=== PATIENT | female | born 2000 ===

== ENCOUNTER 2021-05-11 15:59 | Inpatient (IN) | payer MEDICAID ==
--- NOTE | 2021-05-11 18:04 | History and Physical Report ---
History of Present Illness Date of examination: 05/11/21 Date of admission: 05/11/21 15:59 Chief complaint: labor History of present illness: The patient is a 20-year-old single female primigravida EDC 05/07/2021 now at 40+ weeks she did have GBS positive she will need to be treated in labor. Late care started at 21 weeks she was given vitamin D on 1 hour GTT was abnormal 3-hour GTT was normal she had 11 visits at [facility] her blood type and screen was negative Pap smear was done in the chart rubella was immune VDRL was nonreactive urine culture was negative hepatitis B was negative HIV test was negative platelet count 230,000. Ultrasound 01/02/2021 was 21 weeks 0.6 days. Hemoglobin on 02/01/2021 was 12.5 and hematocrit of 37% VDRL was nonreactive gonorrhea culture was negative chlamydia culture was negative. Group B strep test was positive HIV test was negative the patient is admitted in early labor anticipate vaginal delivery. Past History Past Medical History: no pertinent history Past Surgical History: no surgical history Family/Genetic History: none Social history: single - Obstetrical History Expected Date of Delivery: 05/07/21 Actual Gestation: 40 Week(s) 4 Day(s) : 1 Para: 0 Hx # Term Pregnancies: 0 Number of Pregnancies: 0 Spontaneous Abortions: 0 Induced : 0 Number of Living Children: 0 Review of Systems All systems: negative - Vital Signs Vital signs: Vital Signs Pulse BP 116 H 106/60 05/11/21 16:47 05/11/21 16:47 Temp Pulse Resp BP Pulse Ox 118 H 106/60 99 05/11/21 17:55 05/11/21 16:47 05/11/21 17:55 - Physical Exam Breasts: Positive: normal Cardiovascular: Regular rate, Normal S1, Normal S2 Lungs: Positive: Clear to auscultation, Normal air movement Abdomen: Positive: normal appearance, soft, normal bowel sounds. Negative: distention, tenderness Genitourinary (Female): Positive: normal external genitalia, normal perenium Vulva: both: normal Vagina: Positive: normal moisture. Negative: discharge Cervix: Negative: lesion, discharge Uterus: Positive: normal size, normal contour (term size) Adnexa: both: normal Anus/Rectum: Positive: normal perianal skin, heme negative. Negative: rectal mass, hemorrhoids Extremities: Positive: normal Deep Tendon Reflex Grade: Normal +2 - Obstetrical FHR: auscultation normal, category 1 Uterine Contraction Monitor Mode: External Cervical Dilatation: 2 Cervical Effacement Percentage: 75 station: -3 Uterine Contraction Frequency (min): q4min Uterine Contraction Duration: 1min Uterine Contraction Pattern: Irregular Uterine Tone Measurement Phase: Resting Uterine Contraction Intensity: Moderate Results All other labs normal. Assessment and Plan term .early labor. augment with pitocin.may want epidural.
[2021-05-11] MEDS ORDERED: TERBUTALINE 1 MG/1 ML INJ SUB-Q PRN (19:45)
[2021-05-11] MEDS: LACTATED RINGERS 1,000 ML IV SCH (19:45)
[2021-05-11] MEDS ORDERED: MINERAL OIL 30 ML ORAL LIQD PO PRN (19:45)
[2021-05-11] MEDS ORDERED: miSOPROStol 200 MCG TAB PR PRN (19:45)
[2021-05-11] MEDS ORDERED: ePHEDrine SULFATE 50 MG/1 ML INJ IV PRN (19:45)
[2021-05-11] MEDS ORDERED: OXYTOCIN 10 UNIT/1 ML INJ IM PRN (19:45)
[2021-05-11] MEDS ORDERED: METHYLERGONOVINE MALEATE 0.2 MG/ML VIAL IM PRN (19:45)
[2021-05-11] MEDS ORDERED: LOPERAMIDE 2 MG CAP PO PRN (19:45)
[2021-05-11] MEDS ORDERED: LIDOCAINE (2%) 20 MG/1 ML VIAL 20 ML MDV INFILTRATI ONE (19:45)
[2021-05-11] MEDS ORDERED: CARBOPROST TROMETHAMINE 250 MCG/1 ML INJ IM PRN (19:45)
[2021-05-11] MEDS ORDERED: BUTORPHANOL 2 MG/1 ML INJ IV PRN ×2 (19:45)
[2021-05-11] MEDS ORDERED: fentaNYL 100 MCG/2 ML INJ IV PRN (19:45)
[2021-05-11] MEDS ORDERED: OXYTOCIN DRIP 30 UNITS/500 ML BAG IV SCH ×2 (20:00)
[2021-05-11 20:01] LABS: Hematocrit 36.4 % (30.3-42.9); Hemoglobin 12.3 gm/dl (10.1-14.3); Mean Corpuscular HGB Conc 34 % (30-34); Mean Corpuscular Volume 83 fl (79-97); Platelet Count 206 K/mm3 (140-440); Red Blood Count 4.39 M/mm3 (3.65-5.03); Red Cell Distribution Width 13.9 % (13.2-15.2)
[2021-05-11] MEDS ORDERED: AMPICILLIN/NS 2 GM/100 ML 2 GM/100 ML BAG IV ONE (20:30)
[2021-05-12] MEDS: AMPICILLIN/NS 1 GM/50 ML 1 GM/50 ML BAG IV SCH ×6 (01:17→21:15)
[2021-05-12] MEDS: LACTATED RINGERS 1,000 ML IV SCH ×4 (04:30→21:17)
--- NOTE | 2021-05-12 10:09 | Event Note ---
Date: 05/12/21 PTIS STILL 3 CMS. WILL GIVE HER A PIT BREAK AND RESTART LATER.
[2021-05-12] MEDS ORDERED: DINOPROSTONE 10 MG VAG SUPP VG ONE (12:18)
--- NOTE | 2021-05-12 12:23 | Event Note ---
Date: 05/12/21 Assumed care of patient at 10:30 AM. Patient denies contractions and cervix is posterior. Plan Cervidil for cervical ripening at 13:00. Reassuring FHR tracing. Patient has not been drinking much water; IV fluid bolus given.
[2021-05-12] MEDS: ACETAMINOPHEN 325 MG TAB PO PRN ×2 (22:32→22:35)
[2021-05-12] MEDS ORDERED: GENTAMICIN 100 MG in SODIUM CHLORIDE 0.9% 100 ML IV SCH (22:45)
[2021-05-12] MEDS: GENTAMICIN/NS 100 MG/100 ML 100 MG/100 ML BAG IV SCH (23:29)
[2021-05-13 00:22] LABS: Alanine Aminotransferase 6 units/L (7-56); Albumin 3.2 g/dL (3.9-5); Blood Urea Nitrogen 3 mg/dL (7-17); Calcium 9.1 mg/dL (8.4-10.2); Hemolysis Index 0
[2021-05-13 00:34] LABS: BUN/Creatinine Ratio 8
[2021-05-13] MEDS ORDERED: AMPICILLIN/NS 2 GM/100 ML 2 GM/100 ML BAG IV SCH (02:00)
[2021-05-13] MEDS: LACTATED RINGERS 1,000 ML IV SCH ×2 (02:36→21:24)
[2021-05-13] MEDS: OXYTOCIN DRIP 30 UNITS/500 ML BAG IV SCH (02:56)
--- NOTE | 2021-05-13 06:06 | Progress Note ---
Assessment and Plan A: at 40 weeks, 6 days gestation. Induction of labor for post-dates. GBS positive. P: Continue EFM. Continue Pitocin for IOL. Continue Ampicillin and Gentamicin. CBC, UA, urine culture. Subjective - Subjective Date of service: 05/13/21 Principal diagnosis: at 40 weeks, 6 days; IOL Interval history: Patient received Cervidil yesterday for cervical ripening; it had to be removed after several hours due to uterine hyperstimulation. Overnight she has been receiving Pitocin. SVE: 4/80/-2/soft/posterior. Contractions are currently every 2-4 minutes; uterus palpates soft between contractions. Category 1 FHR tracing. No LOF or VB. Plan is to continue Pitocin and AROM when station is -1 or lower. Patient is receiving Ampicillin and Gentamicin. Repeat CBC and UA ordered. Patient reports: movement normal, contractions, no loss of fluid, no vaginal bleeding Objective - Vital Signs Vital Signs: Vital Signs - 12hr 05/12/21 05/12/21 05/12/21 18:04 18:12 18:17 Temperature Pulse Rate 81 119 H 90 Respiratory Rate Blood Pressure Blood Pressure [Left] O2 Sat by Pulse 97 98 98 Oximetry O2 Sat by Pulse Oximetry [ Bilateral] 05/12/21 05/12/21 05/12/21 18:22 18:27 18:32 Temperature Pulse Rate 90 92 H 90 Respiratory Rate Blood Pressure Blood Pressure [Left] O2 Sat by Pulse 98 98 98 Oximetry O2 Sat by Pulse Oximetry [ Bilateral] 05/12/21 05/12/21 05/12/21 18:37 18:38 18:42 Temperature 98.8 F Pulse Rate 104 H 91 H 97 H Respiratory 14 Rate Blood Pressure 119/65 133/75 Blood Pressure 119/65 [Left] O2 Sat by Pulse 96 98 93 Oximetry O2 Sat by Pulse Oximetry [ Bilateral] 05/12/21 05/12/21 05/12/21 18:47 18:52 18:57 Temperature Pulse Rate 100 H 104 H 106 H Respiratory Rate Blood Pressure Blood Pressure [Left] O2 Sat by Pulse 97 97 97 Oximetry O2 Sat by Pulse Oximetry [ Bilateral] 05/12/21 05/12/21 05/12/21 19:02 19:07 19:12 Temperature Pulse Rate 88 98 H 95 H Respiratory Rate Blood Pressure Blood Pressure [Left] O2 Sat by Pulse 98 97 97 Oximetry O2 Sat by Pulse Oximetry [ Bilateral] 05/12/21 05/12/21 05/12/21 19:14 19:17 19:22 Temperature 98.1 F Pulse Rate 98 H 90 95 H Respiratory 16 Rate Blood Pressure 119/71 Blood Pressure 119/71 [Left] O2 Sat by Pulse 98 98 96 Oximetry O2 Sat by Pulse 97 Oximetry [ Bilateral] 05/12/21 05/12/21 05/12/21 19:27 19:32 19:37 Temperature Pulse Rate 95 H 103 H 103 H Respiratory Rate Blood Pressure Blood Pressure [Left] O2 Sat by Pulse 98 97 98 Oximetry O2 Sat by Pulse Oximetry [ Bilateral] 05/12/21 05/12/21 05/12/21 19:42 19:47 19:52 Temperature Pulse Rate 89 88 89 Respiratory Rate Blood Pressure 114/58 Blood Pressure [Left] O2 Sat by Pulse 98 98 98 Oximetry O2 Sat by Pulse Oximetry [ Bilateral] 05/12/21 05/12/21 05/12/21 19:57 20:02 20:10 Temperature Pulse Rate 90 100 H 110 H Respiratory Rate Blood Pressure Blood Pressure [Left] O2 Sat by Pulse 98 97 98 Oximetry O2 Sat by Pulse Oximetry [ Bilateral] 05/12/21 05/12/21 05/12/21 20:15 20:20 20:25 Temperature Pulse Rate 90 95 H 98 H Respiratory Rate Blood Pressure Blood Pressure [Left] O2 Sat by Pulse 97 96 98 Oximetry O2 Sat by Pulse Oximetry [ Bilateral] 05/12/21 05/12/21 05/12/21 20:30 20:35 20:40 Temperature Pulse Rate 93 H 89 83 Respiratory Rate Blood Pressure Blood Pressure [Left] O2 Sat by Pulse 99 97 98 Oximetry O2 Sat by Pulse Oximetry [ Bilateral] 05/12/21 05/12/21 05/12/21 20:45 20:50 20:55 Temperature Pulse Rate 86 84 105 H Respiratory Rate Blood Pressure Blood Pressure [Left] O2 Sat by Pulse 98 98 97 Oximetry O2 Sat by Pulse Oximetry [ Bilateral] 05/12/21 05/12/21 05/12/21 21:00 21:05 21:10 Temperature Pulse Rate 97 H 89 89 Respiratory Rate Blood Pressure Blood Pressure [Left] O2 Sat by Pulse 98 99 98 Oximetry O2 Sat by Pulse Oximetry [ Bilateral] 05/12/21 05/12/21 05/12/21 21:15 21:20 21:21 Temperature Pulse Rate 95 H 100 H 86 Respiratory Rate Blood Pressure 110/61 Blood Pressure [Left] O2 Sat by Pulse 98 99 Oximetry O2 Sat by Pulse Oximetry [ Bilateral] 05/12/21 05/12/21 05/12/21 21:25 21:30 21:35 Temperature Pulse Rate 86 100 H 94 H Respiratory Rate Blood Pressure Blood Pressure [Left] O2 Sat by Pulse 98 99 98 Oximetry O2 Sat by Pulse Oximetry [ Bilateral] 05/12/21 05/12/21 05/12/21 21:40 21:42 21:45 Temperature Pulse Rate 84 83 83 Respiratory Rate Blood Pressure 115/62 Blood Pressure [Left] O2 Sat by Pulse 98 97 Oximetry O2 Sat by Pulse Oximetry [ Bilateral] 05/12/21 05/12/21 05/12/21 21:50 21:55 22:04 Temperature Pulse Rate 97 H 108 H 95 H Respiratory Rate Blood Pressure Blood Pressure [Left] O2 Sat by Pulse 98 98 97 Oximetry O2 Sat by Pulse Oximetry [ Bilateral] 05/12/21 05/12/21 05/12/21 22:09 22:14 22:19 Temperature Pulse Rate 85 89 89 Respiratory Rate Blood Pressure Blood Pressure [Left] O2 Sat by Pulse 97 97 97 Oximetry O2 Sat by Pulse Oximetry [ Bilateral] 05/12/21 05/12/21 05/12/21 22:21 22:24 22:29 Temperature 99.1 F Pulse Rate 84 104 H Respiratory Rate Blood Pressure Blood Pressure [Left] O2 Sat by Pulse 97 98 Oximetry O2 Sat by Pulse Oximetry [ Bilateral] 05/12/21 05/12/21 05/12/21 22:34 22:39 22:41 Temperature Pulse Rate 94 H 87 86 Respiratory Rate Blood Pressure 121/68 Blood Pressure [Left] O2 Sat by Pulse 97 98 Oximetry O2 Sat by Pulse Oximetry [ Bilateral] 05/12/21 05/12/21 05/12/21 22:44 22:49 22:54 Temperature Pulse Rate 98 H 104 H 94 H Respiratory Rate Blood Pressure Blood Pressure [Left] O2 Sat by Pulse 98 98 98 Oximetry O2 Sat by Pulse Oximetry [ Bilateral] 05/12/21 05/12/21 05/12/21 22:59 23:04 23:09 Temperature Pulse Rate 112 H 98 H 93 H Respiratory Rate Blood Pressure Blood Pressure [Left] O2 Sat by Pulse 99 98 97 Oximetry O2 Sat by Pulse Oximetry [ Bilateral] 05/12/21 05/12/21 05/12/21 23:14 23:19 23:24 Temperature Pulse Rate 86 80 92 H Respiratory Rate Blood Pressure Blood Pressure [Left] O2 Sat by Pulse 97 98 99 Oximetry O2 Sat by Pulse Oximetry [ Bilateral] 05/12/21 05/12/21 05/12/21 23:29 23:34 23:39 Temperature Pulse Rate 107 H 89 101 H Respiratory Rate Blood Pressure Blood Pressure [Left] O2 Sat by Pulse 99 99 98 Oximetry O2 Sat by Pulse Oximetry [ Bilateral] 05/12/21 05/12/21 05/12/21 23:42 23:44 23:49 Temperature Pulse Rate 82 88 90 Respiratory Rate Blood Pressure 121/66 Blood Pressure [Left] O2 Sat by Pulse 98 100 Oximetry O2 Sat by Pulse Oximetry [ Bilateral] 05/12/21 05/12/21 05/13/21 23:54 23:59 00:04 Temperature Pulse Rate 102 H 86 76 Respiratory Rate Blood Pressure Blood Pressure [Left] O2 Sat by Pulse 98 98 97 Oximetry O2 Sat by Pulse Oximetry [ Bilateral] 05/13/21 05/13/21 05/13/21 00:09 00:14 00:19 Temperature 98.8 F Pulse Rate 82 86 80 Respiratory Rate Blood Pressure Blood Pressure [Left] O2 Sat by Pulse 99 98 98 Oximetry O2 Sat by Pulse Oximetry [ Bilateral] 05/13/21 05/13/21 05/13/21 00:24 00:29 00:34 Temperature Pulse Rate 80 77 108 H Respiratory Rate Blood Pressure Blood Pressure [Left] O2 Sat by Pulse 97 96 99 Oximetry O2 Sat by Pulse Oximetry [ Bilateral] 05/13/21 05/13/21 05/13/21 00:39 00:42 00:44 Temperature Pulse Rate 73 78 79 Respiratory Rate Blood Pressure 98/53 Blood Pressure [Left] O2 Sat by Pulse 98 98 Oximetry O2 Sat by Pulse Oximetry [ Bilateral] 05/13/21 05/13/21 05/13/21 00:49 00:51 00:54 Temperature Pulse Rate 77 84 78 Respiratory Rate Blood Pressure Blood Pressure [Left] O2 Sat by Pulse 96 94 96 Oximetry O2 Sat by Pulse Oximetry [ Bilateral] 05/13/21 05/13/21 05/13/21 00:59 01:04 01:09 Temperature Pulse Rate 105 H 80 84 Respiratory Rate Blood Pressure Blood Pressure [Left] O2 Sat by Pulse 95 96 97 Oximetry O2 Sat by Pulse Oximetry [ Bilateral] 05/13/21 05/13/21 05/13/21 01:14 01:19 01:24 Temperature Pulse Rate 89 86 83 Respiratory Rate Blood Pressure Blood Pressure [Left] O2 Sat by Pulse 97 98 98 Oximetry O2 Sat by Pulse Oximetry [ Bilateral] 05/13/21 05/13/21 05/13/21 01:29 01:34 01:39 Temperature Pulse Rate 81 89 133 H Respiratory Rate Blood Pressure Blood Pressure [Left] O2 Sat by Pulse 98 99 99 Oximetry O2 Sat by Pulse Oximetry [ Bilateral] 05/13/21 05/13/21 05/13/21 01:41 01:49 01:54 Temperature Pulse Rate 91 H 97 H 85 Respiratory Rate Blood Pressure 128/65 Blood Pressure [Left] O2 Sat by Pulse 99 97 Oximetry O2 Sat by Pulse Oximetry [ Bilateral] 05/13/21 05/13/21 05/13/21 01:59 02:04 02:09 Temperature Pulse Rate 78 78 78 Respiratory Rate Blood Pressure Blood Pressure [Left] O2 Sat by Pulse 97 97 96 Oximetry O2 Sat by Pulse Oximetry [ Bilateral] 05/13/21 05/13/21 05/13/21 02:14 02:19 02:24 Temperature Pulse Rate 83 81 93 H Respiratory Rate Blood Pressure Blood Pressure [Left] O2 Sat by Pulse 96 97 97 Oximetry O2 Sat by Pulse Oximetry [ Bilateral] 05/13/21 05/13/21 05/13/21 02:29 02:34 02:39 Temperature Pulse Rate 93 H 109 H 95 H Respiratory Rate Blood Pressure Blood Pressure [Left] O2 Sat by Pulse 98 97 97 Oximetry O2 Sat by Pulse Oximetry [ Bilateral] 05/13/21 05/13/21 05/13/21 02:41 02:44 02:49 Temperature Pulse Rate 82 93 H 92 H Respiratory Rate Blood Pressure 82/47 Blood Pressure [Left] O2 Sat by Pulse 98 98 Oximetry O2 Sat by Pulse Oximetry [ Bilateral] 05/13/21 05/13/21 05/13/21 02:54 02:59 03:04 Temperature Pulse Rate 89 84 83 Respiratory Rate Blood Pressure Blood Pressure [Left] O2 Sat by Pulse 98 97 96 Oximetry O2 Sat by Pulse Oximetry [ Bilateral] 05/13/21 05/13/21 05/13/21 03:09 03:14 03:19 Temperature Pulse Rate 82 84 79 Respiratory Rate Blood Pressure Blood Pressure [Left] O2 Sat by Pulse 96 95 96 Oximetry O2 Sat by Pulse Oximetry [ Bilateral] 05/13/21 05/13/21 05/13/21 03:24 03:29 03:34 Temperature Pulse Rate 83 78 91 H Respiratory Rate Blood Pressure Blood Pressure [Left] O2 Sat by Pulse 93 97 97 Oximetry O2 Sat by Pulse Oximetry [ Bilateral] 05/13/21 05/13/21 05/13/21 03:39 03:44 03:49 Temperature Pulse Rate 75 79 78 Respiratory Rate Blood Pressure Blood Pressure [Left] O2 Sat by Pulse 96 97 97 Oximetry O2 Sat by Pulse Oximetry [ Bilateral] 05/13/21 05/13/21 05/13/21 03:54 03:59 04:04 Temperature Pulse Rate 103 H 84 79 Respiratory Rate Blood Pressure Blood Pressure [Left] O2 Sat by Pulse 97 95 95 Oximetry O2 Sat by Pulse Oximetry [ Bilateral] 05/13/21 05/13/21 05/13/21 04:05 04:09 04:10 Temperature Pulse Rate 78 78 81 Respiratory Rate Blood Pressure Blood Pressure [Left] O2 Sat by Pulse 94 95 94 Oximetry O2 Sat by Pulse Oximetry [ Bilateral] 05/13/21 05/13/21 05/13/21 04:14 04:18 04:19 Temperature Pulse Rate 82 83 84 Respiratory Rate Blood Pressure Blood Pressure [Left] O2 Sat by Pulse 95 94 95 Oximetry O2 Sat by Pulse Oximetry [ Bilateral] 05/13/21 05/13/21 05/13/21 04:24 04:25 04:29 Temperature Pulse Rate 83 84 84 Respiratory Rate Blood Pressure Blood Pressure [Left] O2 Sat by Pulse 95 94 95 Oximetry O2 Sat by Pulse Oximetry [ Bilateral] 05/13/21 05/13/21 05/13/21 04:31 04:34 04:37 Temperature Pulse Rate 85 86 122 H Respiratory Rate Blood Pressure Blood Pressure [Left] O2 Sat by Pulse 94 95 93 Oximetry O2 Sat by Pulse Oximetry [ Bilateral] 05/13/21 05/13/21 05/13/21 04:39 04:41 04:44 Temperature Pulse Rate 75 106 H 72 Respiratory Rate Blood Pressure 84/45 Blood Pressure [Left] O2 Sat by Pulse 96 96 Oximetry O2 Sat by Pulse Oximetry [ Bilateral] 05/13/21 05/13/21 05/13/21 04:49 04:54 04:57 Temperature Pulse Rate 78 96 H 83 Respiratory Rate Blood Pressure Blood Pressure [Left] O2 Sat by Pulse 96 95 94 Oximetry O2 Sat by Pulse Oximetry [ Bilateral] 05/13/21 05/13/21 05/13/21 04:59 05:02 05:03 Temperature Pulse Rate 88 89 86 Respiratory Rate Blood Pressure 105/56 Blood Pressure [Left] O2 Sat by Pulse 96 94 Oximetry O2 Sat by Pulse Oximetry [ Bilateral] 05/13/21 05/13/21 05/13/21 05:04 05:07 05:09 Temperature Pulse Rate 80 92 H 80 Respiratory Rate Blood Pressure Blood Pressure [Left] O2 Sat by Pulse 96 94 94 Oximetry O2 Sat by Pulse Oximetry [ Bilateral] 05/13/21 05/13/21 05/13/21 05:14 05:17 05:19 Temperature Pulse Rate 79 81 83 Respiratory Rate Blood Pressure Blood Pressure [Left] O2 Sat by Pulse 95 94 96 Oximetry O2 Sat by Pulse Oximetry [ Bilateral] 05/13/21 05/13/21 05/13/21 05:24 05:29 05:34 Temperature Pulse Rate 81 76 76 Respiratory Rate Blood Pressure Blood Pressure [Left] O2 Sat by Pulse 96 96 96 Oximetry O2 Sat by Pulse Oximetry [ Bilateral] 05/13/21 05/13/21 05/13/21 05:39 05:42 05:44 Temperature Pulse Rate 79 86 78 Respiratory Rate Blood Pressure 84/42 Blood Pressure [Left] O2 Sat by Pulse 96 96 Oximetry O2 Sat by Pulse Oximetry [ Bilateral] 05/13/21 05/13/21 05/13/21 05:49 05:50 05:54 Temperature Pulse Rate 114 H 107 H 98 H Respiratory Rate Blood Pressure 112/62 Blood Pressure [Left] O2 Sat by Pulse 96 98 Oximetry O2 Sat by Pulse Oximetry [ Bilateral] 05/13/21 05:59 Temperature Pulse Rate 93 H Respiratory Rate Blood Pressure Blood Pressure [Left] O2 Sat by Pulse 97 Oximetry O2 Sat by Pulse Oximetry [ Bilateral] - Exam Abdomen: Present: normal appearance, soft. Absent: distention, tenderness, guarding, rigidity Uterus: Present: fundal height above umbilicus. Absent: tenderness FHR: category 1 Uterine Contraction Monitor Mode: External Cervical Dilatation: 4 Cervical Effacement Percentage: 80 (soft, posterior) station: -2 Uterine Contraction Pattern: Regular Uterine Contraction Intensity: Moderate - Labs Labs: Abnormal Labs 05/12/21 23:48 Carbon Dioxide 15 L BUN 3 L Creatinine 0.4 L ALT 6 L Alkaline Phosphatase 153 H Total Protein 5.7 L Albumin 3.2 L Laboratory Results - last 24 hr 05/12/21 05/12/21 09:35 23:48 Sodium 139 Potassium 3.8 Chloride 105.1 Carbon Dioxide 15 L Anion Gap 23 BUN 3 L Creatinine 0.4 L Estimated GFR > 60 BUN/Creatinine Ratio 8 Glucose 74 Calcium 9.1 Total Bilirubin 0.50 AST 10 ALT 6 L Alkaline Phosphatase 153 H Total Protein 5.7 L Albumin 3.2 L Albumin/Globulin Ratio 1.3 Coronavirus (PCR) Negative
[2021-05-13 07:10] LABS: Basophils % (Auto) 0.2 % (0.0-1.8); Eosinophils % (Auto) 0.4 % (0.0-4.3); Hematocrit 31.6 % (30.3-42.9); Lymphocytes # (Auto) 2.7 K/mm3 (1.2-5.4); Lymphocytes % (Auto) 25.3 % (13.4-35.0); Mean Corpuscular HGB Conc 35 % (30-34); Mean Corpuscular Volume 81 fl (79-97); Monocytes # (Auto) 0.7 K/mm3 (0.0-0.8); Monocytes % (Auto) 6.5 % (0.0-7.3); Platelet Count 186 K/mm3 (140-440); Red Blood Count 3.91 M/mm3 (3.65-5.03)
--- NOTE | 2021-05-13 09:46 | Event Note ---
Date: 05/13/21 AROM. 4 CMS, -4 75%. SUGGEST EPIDURAL.
[2021-05-13] MEDS: GENTAMICIN/NS 100 MG/100 ML 100 MG/100 ML BAG IV SCH ×2 (12:25→20:26)
[2021-05-13] MEDS ORDERED: ePHEDrine SULFATE 50 MG/1 ML INJ IV PRN (21:31)
[2021-05-13] MEDS ORDERED: NALOXONE 2 MG/2 ML INJ IV PRN (21:31)
--- NOTE | 2021-05-13 21:31 | Anesthesia Consultation ---
Anesthesia Consult and Med Hx Date of service: 05/13/21 - Airway Anesthetic Teeth Evaluation: Good ROM Head & Neck: Adequate Mental/Hyoid Distance: Adequate Mallampati Class: Class II Intubation Access Assessment: Probably Good - Pulmonary Exam CTA: Yes - Cardiac Exam Cardiac Exam: RRR - Pre-Operative Health Status ASA Pre-Surgery Classification: ASA2 Proposed Anesthetic Plan: Epidural - Pulmonary Hx Asthma: No - Cardiovascular System Hx Hypertension: No - Central Nervous System Hx Seizures: No Hx Psychiatric Problems: No - Endocrine Hx Renal Disease: No Hx Hypothyroidism: No Hx Hyperthyroidism: No - Hematic Hx Anemia: No Hx Sickle Cell Disease: No - Other Systems Hx Alcohol Use: No
[2021-05-13] MEDS ORDERED: fentaNYL-BUPIV 2 MCG/ML-0.125% 200 MCG/100 ML BAG EPIDURAL SCH (22:00)
--- NOTE | 2021-05-13 22:09 | Progress Note ---
Labor Epidural - Labor Epidural Start Time: 21:57 Stop Time: 22:02 Performed by:: SHANTANU VARGAS Procedure: Patient is requesting epidural for labor pain. H&P, and labs reviewed. Procedure explained, questions answered, consent obtained. Patient in sitting position with blood pressure cuff and pulse ox on and working. Timeout performed immediately before start of procedure. Sterile chlorahexadine 0.5% prep/drape. 3 mL 1% lidocaine skin wheal at L[3]-L[4]. 17-gauge tuohy epidural needle advanced to [id number] with saline at [7] cm. 25-gauge spinal needle advanced until clear, free-flowing CSF. Intrathecal dexmedetomidine [5] mcg administered and needle removed. Epidural catheter advanced to [12] cm, negative aspiration for blood and csf, negative test dose 3 ml 1.5% lidocaine with epinephrine. Sterile sponge and tegaderm applied, followed by tape reinforcement. Patient tolerated procedure well.
[2021-05-14] MEDS: LACTATED RINGERS 1,000 ML IV SCH ×2 (02:40→07:54)
[2021-05-14] MEDS ORDERED: LIDOCAINE (2%) 20 MG/1 ML VIAL 20 ML MDV INFILTRATI ONE (03:13)
[2021-05-14] MEDS: OXYTOCIN DRIP 30 UNITS/500 ML BAG IV SCH (05:27)
[2021-05-14] MEDS ORDERED: WITCH HAZEL/ GLYCERIN PAD TP PRN (05:39)
[2021-05-14] MEDS ORDERED: PROMETHAZINE 25 MG RECT SUPP PR PRN (05:39)
[2021-05-14] MEDS ORDERED: ONDANSETRON 4 MG/2 ML INJ IV PRN (05:39)
[2021-05-14] MEDS ORDERED: PROMETHAZINE 25 MG TAB PO PRN (05:39)
[2021-05-14] MEDS ORDERED: LANOLIN/ZINC/DIMETHICONE (LANSINOH) 7 GM TP PRN (05:39)
[2021-05-14] MEDS ORDERED: MAGNESIUM HYDROXIDE (MOM) ORAL LIQD UDC PO PRN (05:39)
--- NOTE | 2021-05-14 05:48 | Procedure Note ---
Date of procedure: 05/14/21 Pre-op diagnosis: term ,induction of labor Post-op diagnosis: same Procedure: Document dictating procedure note on the patient. Surgeon Dr. Hurtado. Blueprint Maker none Diagnosis term , induction of labor. Findings liveborn female weight 8 pounds 3 ounces, Apgars 8 and 9. Estimated blood loss 400 cc. Procedure was a vacuum delivery midline AP episiotomy and repair with 3-0 Vicryl suture. The rectal mucosa was intact and a procedure for midline episiotomy. The midline episiotomy was repaired with 3-0 Vicryl suture... Details of procedure outlet vacuum delivery with a Kiwi. The patient tolerated procedure well she was then allowed to recover in normal fashion and of delivery note on this patient. Anesthesia: epidural Surgeon: RAISA CHOU Estimated blood loss: other (400 ccs) Pathology: none Specimen disposition: discarded Condition: stable Disposition: floor
[2021-05-14] MEDS: ACETAMINOPHEN 325 MG TAB PO PRN (06:50)
[2021-05-14 07:08] LABS: Hemoglobin 8.8 gm/dl (10.1-14.3)
[2021-05-14] MEDS: IBUPROFEN 600 MG TAB PO SCH ×3 (07:53→19:14)
[2021-05-14] MEDS ORDERED: SODIUM CHLORIDE 0.9% 500 ML 500 ML IV SCH ×2 (08:00→19:21)
[2021-05-14 08:44] LABS: Mucus,Urine FEW /HPF
[2021-05-14 08:45] LABS: Bilirubin,Urine NEG (Negative); Blood,Urine LG (Negative); Color,Urine Yellow (Yellow)
[2021-05-14] MEDS: oxyCODONE /ACETAMINOPHEN 5-325MG TAB PO PRN ×2 (09:33→16:08)
[2021-05-14] MEDS: DOCUSATE SODIUM 100 MG CAP PO SCH (13:28)
[2021-05-14] MEDS: FERROUS SULFATE 325 MG TAB PO SCH (13:28)
--- NOTE | 2021-05-14 16:24 | Post Anesthesia Evaluation ---
- Post Anesthesia Evaluation Patient Participated: Yes Airway Patent: Yes Stable Respiratory Function: Yes Nausea/Vomiting: No Temp > 96.8F: Yes Pain Manageable: Yes Adequeate Hydration: Yes Anesthesia Complications: No Block Receding Appropriately: Yes
[2021-05-14 18:44] LABS: Hematocrit 22.9 % (30.3-42.9); Hemoglobin 7.5 gm/dl (10.1-14.3)
--- NOTE | 2021-05-14 19:25 | Event Note ---
Date: 05/14/21 Hemoglobin 7.5; hematocrit 22.9. Tachycardia noted. 2 units of PRBCs ordered. Discussed POC with patient. Patient consents to receive blood transfusion. Will repeat CBC tomorrow AM.
[2021-05-15] MEDS: IBUPROFEN 600 MG TAB PO SCH ×3 (00:03→18:40)
[2021-05-15] MEDS: FERROUS SULFATE 325 MG TAB PO SCH ×3 (00:04→21:47)
[2021-05-15] MEDS: DOCUSATE SODIUM 100 MG CAP PO SCH ×3 (00:04→21:47)
[2021-05-15] MEDS ORDERED: SODIUM CHLORIDE 0.9% 500 ML 500 ML IV ONE (03:46)
[2021-05-15] MEDS: diphenhydrAMINE 25 MG CAP PO PRN ×2 (04:07→20:46)
[2021-05-15] MEDS: ACETAMINOPHEN 325 MG TAB PO PRN ×2 (04:07→20:46)
--- NOTE | 2021-05-15 11:33 | Progress Note ---
Assessment and Plan A: PP Day#1 s/p VAD Severe Anemia P: Follow Routine Orders S/P Blood Transfusion; Continue PO FeSO4 Encourage increased ambulation Subjective - Subjective Date of service: 05/15/21 Principal diagnosis: at 40 weeks, 6 days; IOL Patient reports: appetite normal, voiding normally, pain well controlled, ambulating normally, other (states she feels well after blood transfusion; denies dizziness and light headness) [place]: doing well, bottle feeding Objective - Vital Signs Latest vital signs: Vital Signs Temp Pulse Resp BP BP Pulse Ox Pulse Ox 05/15/21 10:42 100 05/15/21 07:47 98.2 F 106 H 20 91/53 100 05/15/21 07:05 96/56 05/15/21 06:55 98.0 F 83 16 87/44 100 05/15/21 06:25 97.8 F 98 H 16 90/47 99 05/15/21 05:55 97.7 F 88 18 89/49 97 05/15/21 05:25 97.7 F 98 H 18 91/44 98 05/15/21 04:55 97.7 F 93 H 18 90/46 100 05/15/21 04:40 97.6 F 107 H 18 89/47 98 05/15/21 04:09 113 H 18 89/47 99 05/15/21 00:24 97.9 F 104 H 18 102/62 100 05/14/21 19:30 97 05/14/21 16:37 98 F 96 H 18 98/41 97 05/14/21 12:29 98.0 F 85 20 105/51 99 Intake and Output 05/14/21 05/15/21 05/15/21 22:59 06:59 14:59 Intake Total 1460 420 240 Output Total 400 Balance 1060 420 240 Intake: Oral 860 240 Intake, Free Water 600 420 Blood Product 0 Leukoreduced Red Blood 0 Cells Unit [id number] Output: Urine 400 Void 400 Other: Total, Intake Amount 500 240 Total, Output Amount 400 # Voids Void 1 1 - Exam Breasts: Present: normal Cardiovascular: Present: Regular rate Lungs: Present: Clear to auscultation, Normal air movement Abdomen: Present: normal appearance, soft, normal bowel sounds Uterus: Present: normal, firm, fundal height below umbilicus Extremities: Present: normal - Labs Labs: Abnormal lab results 05/11/21 05/14/21 05/15/21 Range/Units 19:40 18:28 00:15 Hgb 7.5 L (10.1-14.3) gm/dl Hct 22.9 L (30.3-42.9) % Crossmatch See Detail See Detail
[2021-05-15 11:50] LABS: Basophils % (Auto) 0.3 % (0.0-1.8); Eosinophils # (Auto) 0.1 K/mm3 (0.0-0.4); Eosinophils % (Auto) 0.7 % (0.0-4.3); Hematocrit 22.2 % (30.3-42.9); Hemoglobin 7.5 gm/dl (10.1-14.3); Lymphocytes # (Auto) 1.7 K/mm3 (1.2-5.4); Lymphocytes % (Auto) 13.8 % (13.4-35.0); Mean Corpuscular HGB Conc 34 % (30-34); Mean Corpuscular Volume 82 fl (79-97); Monocytes # (Auto) 0.7 K/mm3 (0.0-0.8); Monocytes % (Auto) 5.7 % (0.0-7.3); Platelet Count 162 K/mm3 (140-440); Red Blood Count 2.71 M/mm3 (3.65-5.03); Red Cell Distribution Width 15.3 % (13.2-15.2)
[2021-05-16] MEDS: IBUPROFEN 600 MG TAB PO SCH ×2 (00:20→06:28)
[2021-05-16 05:31] LABS: Hematocrit 25.6 % (30.3-42.9); Hemoglobin 8.7 gm/dl (10.1-14.3)
[2021-05-16] MEDS: FERROUS SULFATE 325 MG TAB PO SCH (10:19)
[2021-05-16] MEDS: DOCUSATE SODIUM 100 MG CAP PO SCH (10:19)
--- NOTE | 2021-05-16 11:03 | Progress Note ---
Assessment and Plan A: S/P VAD Severe anemia s/p transf P: Continue routine pp care D/C home if stable Subjective - Subjective Date of service: 05/16/21 Principal diagnosis: s/p VAD with severe anemia Patient reports: appetite normal, voiding normally, pain well controlled, ambulating normally, other (denies sob, dizziness, or fatigue) : doing well, bottle feeding Objective - Vital Signs Latest vital signs: Vital Signs Temp Pulse Resp BP Pulse Ox Pulse Ox 05/16/21 08:04 97.9 F 79 19 100/60 100 05/16/21 08:00 100 05/16/21 07:23 18 05/16/21 06:28 18 05/16/21 01:20 18 05/16/21 00:20 18 05/16/21 00:00 82 18 107/63 100 05/15/21 23:40 80 18 112/74 100 05/15/21 23:10 85 18 106/58 100 05/15/21 22:40 80 18 118/74 100 05/15/21 22:10 98.5 F 83 18 114/65 100 05/15/21 21:46 18 05/15/21 21:35 98.5 F 82 18 104/64 100 05/15/21 21:30 100 05/15/21 21:20 98.6 F 86 18 110/66 100 05/15/21 20:46 18 05/15/21 19:40 18 05/15/21 16:40 100 05/15/21 16:37 98.4 F 105 H 20 105/57 100 05/15/21 14:11 100 05/15/21 12:08 98.5 F 104 H 20 98/55 99 05/15/21 12:00 100 Intake and Output 05/15/21 05/16/21 05/16/21 22:59 06:59 14:59 Intake Total 600 490 360 Balance 600 490 360 Intake: Oral 600 240 360 Blood Product 0 250 Leukoreduced Red Blood 0 250 Cells Unit [id number] Other: Total, Intake Amount 240 120 120 # Voids Void 1 1 - Exam Breasts: Present: normal Abdomen: Present: normal appearance, soft, normal bowel sounds Vulva: both: normal Uterus: Present: normal, firm, fundal height below umbilicus Extremities: Present: normal Incision: Present: normal, intact - Labs Labs: Abnormal lab results 05/15/21 05/15/21 05/16/21 Range/Units 00:15 11:08 04:59 WBC 12.4 H (4.5-11.0) K/mm3 RBC 2.71 L (3.65-5.03) M/mm3 Hgb 7.5 L 8.7 L (10.1-14.3) gm/dl Hct 22.2 L 25.6 L (30.3-42.9) % RDW 15.3 H (13.2-15.2) % Seg Neutrophils % 79.5 H (40.0-70.0) % Seg Neutrophils # 9.8 H (1.8-7.7) K/mm3 Crossmatch See Detail
--- NOTE | 2021-05-16 11:08 | Discharge Summary ---
Providers - Providers Date of Admission: 05/11/21 15:59 Date of discharge: 05/16/21 Attending physician: RAISA CHOU MD Primary care physician: RAISA CHOU MD Hospitalization Reason for admission: induction of labor Delivery: vacuum extraction Episiotomy: midline Incision: normal, intact Other procedures: none complications: transfusion Discharge diagnosis: IUP at term delivered [place] baby: female Hospital course: Pt was admitted for an IOL and had a VAD. She dev a PPH and had transfusions x 2. Pt was d/c'd home in stable condition per her request. See h&p, delivery summary, and pp notes. Condition at discharge: Stable Disposition: HOME / SELF CARE / HOMELESS Plan - Discharge Medications Prescriptions: Ferrous Sulfate [Feosol 325 MG tab] 325 mg PO BID #120 tablet Ibuprofen [Motrin 600 MG tab] 600 mg PO Q6H PRN #30 tablet PRN Reason: Menstrual Cramps - Provider Discharge Summary Activity: routine, no sex for 6 weeks, no heavy lifting 4 weeks, no strenuous exercise Diet: routine Instructions: routine Additional instructions: [] Smoking cessation referral if applicable(refer to patient education folder for contact #) [] Refer to [facility]'s [facility] Booklet Call your doctor immediately for: * Fever > 100.5 * Heavy vaginal bleeding ( >1 pad per hour) * Severe persistent headache * Shortness of breath * Reddened, hot, painful area to leg or breast * Drainage or odor from incision. * Keep incision clean and dry at all times and follow doctor's instructions regarding bathing/showering - Follow up plan Follow up: RAISA CHOU MD [Primary Care Provider] - 6 Weeks
[2021-05-16 16:40] VITALS: BP 119/73
== END 2021-05-16 16:09 | disposition home or self-care (01) | DRG 775 ==
LOC: LD 15:59 → OB 05-14 08:09
PROC: 10D07Z6 Extraction of Products of Conception, Vacuum, Via Natural or Artificial Opening (ICD-10-PCS; principal; 2021-05-14)
PROC: 0W8NXZZ Division of Female Perineum, External Approach (ICD-10-PCS; 2021-05-14)
PROC: 3E0P7VZ Introduction of Hormone into Female Reproductive, Via Natural or Artificial Opening (ICD-10-PCS; 2021-05-14)
PROC: 3E0R3BZ Introduction of Anesthetic Agent into Spinal Canal, Percutaneous Approach (ICD-10-PCS; 2021-05-14)
PROC: 00HU33Z Insertion of Infusion Device into Spinal Canal, Percutaneous Approach (ICD-10-PCS; 2021-05-14)
DX: O48.0 Post-term pregnancy (principal); Z37.0 Single live birth; Z3A.40 40 weeks gestation of pregnancy; O99.824 Streptococcus B carrier state complicating childbirth; Z20.822 Contact with and (suspected) exposure to COVID-19; O90.81 Anemia of the puerperium
CPT/HCPCS: 36415; 59200; 80053; 81001; 82962; 85014; 85018; 85025; 85027; 86592; 86850; 86900; 86901; 86920; 87086; 99211; G0378; G0463; J0290; J0595; J1580; J2210; J2590; J7040; J7120; P9016; U0003